=== PATIENT | female | born 1985 | race Caucasian/White ===

== ENCOUNTER → 2018-12-23 | Outpatient (CLI) | payer OTHER ==
--- NOTE | 2018-12-23 15:03 | REP ---
BILATERAL MAMMOGRAM WITH RIGHT BREAST ULTRASOUND: No family history of breast cancer. Tyrer-Cuzick lifetime risk of breast cancer 12.9%. Baseline study. Patient reports a palpable lump inferomedially in the right breast. The area is marked on the skin with a triangular marker. The patient has bilateral breast implants. Routine MLO and CC views are performed. An implant displaced left CC view is performed but the patient refused further implant displaced views. Bilateral breast implants are grossly intact with no extracapsular rupture. Breast parenchyma is predominantly fatty replaced with mild scattered fibroglandular tissue bilaterally. There is no mammographic evidence of a mass or architectural distortion. No clustered microcalcifications are seen. Real-time sonographic evaluation of the right breast is performed at the site of the reported palpable lump. Questionable 4 mm hyperechoic focus is seen at the site of the palpable lump, which may represent a small lipoma or other nonspecific nodule. This is of doubtful significance. IMPRESSION: BIRADS 3: BI-RADS/ACR category 3 mammogram. Probably Benign Findings. ACR 3 probably benign. No mammographic abnormality is seen. By ultrasound at the sight of the reported palpable lump is a 4 mm hyperechoic focus which is of doubtful significance. It could possibly represent a tiny lipoma. Recommend followup ultrasound in 6 months. This mammogram was interpreted with the aid of an FDA-approved computer-aided detection system. A. Negative x-ray reports should not delay biopsy if a dominant or clinically suspicious mass is present. B. Four to eight percent of cancers are not identified by x-ray. C. Adenosis and dense breasts may obscure an underlying neoplasm. The patient states she/he had a clinical breast exam in December 2018. The patient letter being requested is M3. Electronically Signed by Bright Aranda MD 12/24/2018 12:25 P
== END ==
LOC: M RAD 10:59
PROVIDERS: ATTEND Family Medicine
DX: N63.14 Unspecified lump in the right breast, lower inner quadrant (principal); Z98.82 Breast implant status